=== PATIENT | female | born 1955 ===

== ENCOUNTER 2018-01-17 01:07 | Inpatient (IN) | payer BC ==
[2018-01-16 13:28] LABS: INR 1.03
[~2018-01-17] VITALS: Ht 149.9 cm; Wt 67.1 kg
[2018-01-17] VITALS (10 sets, daily range): BP systolic 119–162; BP diastolic 77–100
[~2018-01-17 01:07] MED LIST: MELO-207 PO; METO25TA93 PO; MULT-1097 PO; NIFE-15 PO; POTA-53 PO; SIMV-49 PO; SIMV-54 PO; TELM1TAB18 PO
[2018-01-17] MEDS ORDERED: cloNIDine EPIDUR INJ 100MCG/ML 40 MCG, ROPIVACAINE 0.5% 20 ML VIAL 25 ML, EPINEPHrine H... INJ ONE (09:30)
[2018-01-17] MEDS ORDERED: ceFAZolin(*) 1 GM VIAL 1 GM in NS(*) 0.9% 100 ML ADDVANT BAG 100 ML IVPB ONE (09:30)
[2018-01-17] MEDS ORDERED: ACETAMINOPHEN 500 MG TAB PO ONE (09:30)
[2018-01-17] MEDS ORDERED: BACITRACIN 50000 UNIT/VIAL 100,000 UNIT in NS 0.9% 3000 ML IRRIGATION BAG 3,000 ML IR ONE (09:30)
[2018-01-17] MEDS ORDERED: TRANEXAMIC AC 1000 MG/10ML SDV 1,000 MG in DEXTROSE 5% 50 ML BAG 50 ML IV ONE (09:30)
[2018-01-17] MEDS ORDERED: MIDAZOLAM 2 MG/2 ML VIAL IVP PRN (09:30)
[2018-01-17] MEDS ORDERED: LIDOCAINE/SOD BICARB 8.4% SYR ID ONE (09:30)
[2018-01-17] MEDS ORDERED: NORMOSOL R SOLN(*) 1000 ML BAG 1,000 ML IV PRN (09:30)
[2018-01-17] MEDS ORDERED: FAMOTIDINE 20 MG TAB PO ONE (09:30)
[2018-01-17] MEDS ORDERED: PREGABALIN 150 MG CAPSULE PO ONE (09:30)
[2018-01-17] MEDS ORDERED: fentaNYL CITR 100 MCG/2 ML AMP ONE ×3 (09:46→14:10)
[2018-01-17] MEDS ORDERED: KETAMINE HCL-NS 50 MG/5 ML SYR ONE (09:46)
[2018-01-17] MEDS ORDERED: LIDOCAINE MPF 1% 5 ML VIAL ONE (09:47)
[2018-01-17] MEDS ORDERED: ONDANSETRON 4 MG/2 ML VIAL ONE (09:47)
[2018-01-17] MEDS ORDERED: PROPOFOL EMUL(*) 10MG/ML 20 ML 20 ML ONE (09:47)
[2018-01-17] MEDS ORDERED: DEXAMETHASONE SOD PHOS 10MG/ML ONE (09:47)
[2018-01-17] MEDS ORDERED: ROPIVACAINE 0.2% 20 ML VIAL ONE (10:29)
[2018-01-17] MEDS ORDERED: EPINEPHrine HCL 1 MG/ML AMP ONE (10:29)
[2018-01-17] MEDS ORDERED: GLYCOPYRROLATE 1 MG/5 ML INJ ONE (12:08)
[2018-01-17] MEDS ORDERED: PROMETHAZINE 25 MG/ML 1 ML AMP IVP PRN (14:35)
[2018-01-17] MEDS ORDERED: ONDANSETRON 4 MG/2 ML VIAL IVP PRN (14:35)
[2018-01-17] MEDS ORDERED: ZOLPIDEM TARTRATE 5 MG TAB PO PRN (14:35)
[2018-01-17] MEDS ORDERED: diphenhydrAMINE 25 MG CAP PO PRN (14:35)
[2018-01-17] MEDS ORDERED: MAGNESIUM CITRATE 300 ML BTL PO PRN (14:35)
[2018-01-17] MEDS ORDERED: MAGNESIUM HYDROXIDE* 30ML UDCP PO PRN (14:35)
[2018-01-17] MEDS ORDERED: LR 1000 ML BAG 1000 ML IV PRN (14:35)
[2018-01-17] MEDS ORDERED: FLUSH 10 ML SYR IVP PRN (14:35)
[2018-01-17] MEDS ORDERED: BISACODYL 10 MG SUPP PR PRN (14:35)
[2018-01-17] MEDS ORDERED: HYDROmorphone HCL 2 MG/ML SDV IVP PRN (14:35)
[2018-01-17] MEDS ORDERED: diphenhydrAMINE 50 MG/ML VIAL IVP PRN (14:35)
--- NOTE | 2018-01-17 14:44 | OPERATIVE REPORT 1 ---
EVENT DATE: January 17, 2018 SURGEON: Clyde Bettencourt MD ANESTHESIOLOGIST: Abel Spencer MD ANESTHESIA: General plus Spinal. 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 POSTOPERATIVE DIAGNOSIS Right knee osteoarthritis PROCEDURE PERFORMED Right total knee arthroplasty. FINDINGS The patient had a significant amount of arthritic changes associated with the knee but was amenable for total knee replacement. ESTIMATED BLOOD LOSS 200 mL. DRAINS None. COMPLICATIONS None. TOURNIQUET TIME 18 minutes. IMPLANTS USED DePuy Attune posterior stabilized right size 5 femur with a size 3 rotating platform tibia, a 5 x 5 rotating platform insert and a 35 anatomic patella. SPECIMENS None. INDICATIONS AND HISTORY This patient is a 62-year-old female that presented to my clinic for evaluation of right knee pain and irritation going on for some time. She continued to have pain and irritation despite conservative management and even had a knee arthroscopy, which revealed full thickness cartilage lesions and, therefore, she wanted to go ahead with total knee arthroplasty since she was still continuing to have pain and problems and we got her set up to do this today, January 17, 2018. The risks and benefits were discussed with the patient and inform consent was obtained at the last clinic visit. We told her there is no guarantee that it makes her better and that she may have to have revision at some point in her life. DESCRIPTION OF PROCEDURE The patient was brought into the operating room. She and the procedure were both verified. She was given a spinal and then placed supine on the operating table by anesthesia. The right lower extremity was prepped and draped in the usual fashion and a time-out was observed, verifying the correct patient and procedure. The standard incision was made over the anterior aspect of the knee through the skin and subcutaneous tissue. I was unable to go down through the skin and subcutaneous tissue in order to get down to the medial parapatellar approach. Once I was onto a medial parapatellar approach, I then cauterized all the bleeders throughout. I was then able to cut in the medial parapatellar pouch and then remove the anterior aspect of the menisci and both the lateral and medial sides. I was then able to sublux the patella to the lateral side and remove some of the synovitis on the superior aspect of the femur. Then I was able to hyperflex the knee and remove the ACL and most of the PCL without any major difficulty. I then took a rongeur and removed some of the cartilage. I then drilled the intramedullary guide for the Attune knee. Once I was able to drill the intramedullary canal, I then was able to place the intramedullary guide and then cut 9 mm off the distal femur and then sized it to a size 5 with the standard Attune block. We the put on a 4-in-1 cutting block for the size 5 and cut all of the major cuts and cut the notch without any difficulty. I then turned attention towards the tibia, where I was able to remove the rest of the menisci and the posterior aspects and the rest of the PCL and then subluxed the tibia forward. Once I had a good subluxation of the tibia forward, I then was able to drill intramedullary and use the intramedullary guide in accordance with the Attune System in order to cut 2 mm off the medial side. I then was able to do this with the saw after pinning the block in place and then was able to remove the rest of the medial menisci, which was still kind of present in this area and I also removed some of posterior osteophytes from the posterior aspect of the knee and then released the capsule back in this area. Once I did this, I was then able to size the tibia to a size 3. A size 4 looked just a little bit big so, therefore, we utilized the 3. Once I was able to do this, I then put in the standard tray, drilled the central portion and then put in the keel without any difficulty. I then implanted the trial. I then used the trial components with a 5 femur and the 3 tibia and a 5x3 insert associated with this. This did very well. It was a little bit tight posteriorly but I did hyperextend the knee in order to release a little bit more posteriorly and this allowed for better extension. The kneecap tracked very well so, therefore, we put in an anatomic patella. We everted the patella and then cut off about 7.5 mm. This was then followed by sizing to a 35 mm patella and then drilling the holes without any difficulty. I then was able to exsanguinate the limb and then put the tourniquet up. We cemented in the tibial and femoral components first and made sure we were good and then mixed the second batch and did the patella on this particular case. Once everything was hardened and everything looked good, we then closed the medial parapatellar approach with #2 Stratafix followed by 2-0 Vicryl in the fat layer and then 2-0 Stratafix in the subcutaneous tissue and subcuticular 4-0 running Monocryl and bio-occlusive dressing was applied. The wound was also anesthetized with a joint cocktail prior to instrumentation of the component. The patient was then awakened and extubated and transferred to the PACU in stable condition. She will be admitted overnight. CORINNE
[2018-01-17] MEDS ORDERED: METO-253 PO (15:15)
--- NOTE | 2018-01-17 15:21 | Hospitalist Progress Note ---
Subjective Progress Notes Subjective Patient seen post-op. Reviewed PMHx (HTN, hyperlipidemia) and medications (nifedipine, metoprolol, Micardis HCT). At present she reports doing well. No CP/SOB/N/V. Physical Exam Vital Signs Date Time Temp Pulse Resp B/P (MAP) Pulse Ox O2 Delivery O2 Flow Rate FiO2 01/17/18 09:19 97.2 78 16 143/99 (114) 93 Room Air General Appearance: Alert, Awake Cardiovascular: Regular Rate and Rhythm Respiratory: Clear to Auscultation Assessment and Plan Problems: (1) S/P knee replacement Status: Acute Assessment & Plan: She appears to have tolerated surgery/anesthesia very well. She will be on aspirin 325mg daily for DVT prophylaxis. (2) HTN (hypertension) Status: Chronic Assessment & Plan: Will monitor BPs and resume her medications as needed. (3) Hyperlipidemia Status: Chronic Assessment & Plan: Continue simvastatin. CECILIA YU MD Jan 17, 2018 15:21
--- NOTE | 2018-01-17 17:15 | RADIOLOGY IMAGING REPORT ---
FACILITY: [facility] PATIENT NAME: Megan Garrett : 1955 MR: [id number] V: [id number] EXAM DATE: ORDERING PHYSICIAN: SOLOMON BATEMAN TECHNOLOGIST: Location: [facility] [place] Patient: Megan Garrett : 1955 Visit/Account:[id number] Date of Sevice: 01/17/2018 Study: KNEE LIMITED RIGHT Indication: Status post knee replacement Comparison study: None available Findings: AP and lateral views of the right knee demonstrates the patient is status post total knee a rthroplasty. There are postsurgical changes present. The metallic components of the hip prosthesis ar e unremarkable in appearance. There is no evidence of acute bony abnormality identified. IMPRESSION: Status post right total knee arthroplasty Report Dictated By: Daniel Mosher at 01/17/2018 5:10 PM Report E-Signed By: Daniel Mosher at 01/17/2018 5:11 PM WSN:[id number]
[2018-01-17] MEDS: POTASSIUM CHL 10 MEQ TABCR PO SCH (17:38)
[2018-01-17] MEDS: ceFAZolin(*) 1 GM VIAL 1 GM in NS(*) 0.9% 100 ML ADDVANT BAG 100 ML IVPB SCH (20:16)
[2018-01-17] MEDS ORDERED: SIMVASTATIN 20 MG TAB PO SCH (21:00)
[2018-01-17] MEDS ORDERED: ASPIRIN 325 MG TAB PO SCH (21:00)
[2018-01-17] MEDS ORDERED: METOPROLOL TART 50 MG TAB PO SCH (21:00)
[2018-01-18] MEDS: ceFAZolin(*) 1 GM VIAL 1 GM in NS(*) 0.9% 100 ML ADDVANT BAG 100 ML IVPB SCH (04:28)
[2018-01-18] MEDS ORDERED: OXYC-865 PO (08:01)
[2018-01-18] MEDS: POTASSIUM CHL 10 MEQ TABCR PO SCH (08:19)
[2018-01-18 08:24] VITALS: BP 113/75
[2018-01-18] MEDS ORDERED: ASPI-757 PO (08:32)
[2018-01-18] MEDS ORDERED: TELMISARTAN 40 MG TAB PO SCH (09:00)
[2018-01-18] MEDS ORDERED: HYDROCHLOROTHIAZIDE 25 MG TAB PO SCH (09:00)
[2018-01-18] MEDS ORDERED: NIFEdipine XL 30 MG TABCR PO SCH (09:00)
--- NOTE | 2018-01-18 12:08 | Hospitalist Progress Note ---
Subjective Progress Notes Subjective She has no complaints this morning. She had no acute events overnight. Patient Complains of: Cardiovascular: No: Chest Pain Respiratory: No: Shortness of Breath Physical Exam Vital Signs Date Time Temp Pulse Resp B/P (MAP) Pulse Ox O2 Delivery O2 Flow Rate FiO2 01/18/18 08:24 98.2 77 18 113/75 (88) 90 01/18/18 08:24 Room Air 01/17/18 15:05 0.5 Intake and Output 01/18/18 01:00 Intake Total 1820 ml Balance 1820 ml Intake Oral 120 ml IV Total 1700 ml # Voids 1 General Appearance: Alert, Awake, No Acute Distress, Afebrile Neuro: No Gross deficits Cardiovascular: Regular Rate and Rhythm Respiratory: No Respiratory Distress, Clear to Auscultation GI: Soft and Non-Tender Psych: Alert & Oriented X3, Appropriate Mood & Affect Result Diagram: 01/18/18 0545 01/18/18 0545 Assessment and Plan Problems: (1) S/P knee replacement Status: Acute Assessment & Plan: She appears to have tolerated surgery/anesthesia very well. She will be on aspirin 325mg daily for DVT prophylaxis. (2) HTN (hypertension) Status: Chronic Assessment & Plan: Will monitor BPs and resume her medications as needed. (3) Hyperlipidemia Status: Chronic Assessment & Plan: Continue simvastatin. Exam Sepsis Risk: No Definite Risk TIFFANI QUEEN Jan 18, 2018 12:08
== END 2018-01-18 10:15 | disposition home or self-care (01) | DRG 470 ==
LOC: OR 01:07 → OBSVTOIN 15:05 → MED 15:05 → INTOOBSV 15:05
PROVIDERS: ADMIT Orthopaedic Surgery; ATTEND Orthopaedic Surgery
PROC: 0SRC0J9 Replacement of Right Knee Joint with Synthetic Substitute, Cemented, Open Approach (ICD-10-PCS; principal; 2018-01-17 12:22)
DX: M17.11 Unilateral primary osteoarthritis, right knee (principal); I10 Essential (primary) hypertension; E78.5 Hyperlipidemia, unspecified; Z98.1 Arthrodesis status; Z88.2 Allergy status to sulfonamides; Z90.710 Acquired absence of both cervix and uterus; Z90.49 Acquired absence of other specified parts of digestive tract
CPT/HCPCS: 36415; 76942; 82310; 82374; 82435; 82565; 82947; 84132; 84295; 84520; 85014; 85018; 85610; 86850; 86900; 86901; 97161; C1713; C1776; J0171; J0690; J0735; J1100; J1885; J2001; J2405; J2704; J2795; J3010; J3490; J7050; J7060